=== PATIENT | female | born 1980 | race Caucasian/White ===

== ENCOUNTER 2022-10-18 12:24 | Outpatient (CLI) | payer MEDICAID, SELFPAY ==
[2022-10-18 13:46] LABS: Albumin* 4.5 g/dL (3.3-5.0); Chloride* 106 mmol/L (96-114)
[2022-10-18 13:47] LABS: Potassium* 4.2 mmol/L (3.6-5.1); Sodium* 139 mmol/L (135-149)
[2022-10-18 13:49] LABS: Aspartate Amino Transferase* 19 U/L (12-35); Bilirubin Total* 0.8 mg/dL (0.1-1.5); Carbon Dioxide* 27 mmol/L (20-32); Cholesterol* 147 mg/dL (90-199); Creatinine* 0.7 mg/dL (0.5-1.5); Estimated Glomerular Filt Rate 111 ml/min
[2022-10-18 13:50] LABS: Alanine Aminotransferase* 9 U/L (4-35); Alkaline Phosphatase* 52 U/L (40-150); Blood Urea Nitrogen* 8 mg/dL (5-24); Calcium* 9.1 mg/dL (8.4-10.6); Glucose* 84 mg/dL (60-115); HDL Cholesterol* 66 mg/dL (>=50); LDL Cholesterol Calculated 62 mg/dL (<100); Triglycerides* 95 mg/dL (40-149)
== END 2022-10-18 12:25 | disposition home or self-care (01) ==
PROVIDERS: PCP Family Medicine; Visit Provider Family Medicine
DX: Z13.6 Encounter for screening for cardiovascular disorders (principal); Z13.9 Encounter for screening, unspecified
CPT/HCPCS: 80053; 80061

== ENCOUNTER 2022-12-21 13:04 | Outpatient (REF) | payer MEDICAID, SELFPAY ==
[2022-12-21 13:33] LABS: Basophils Absolute Auto 0.01 K/uL (0.00-0.30); Basophils Percent Auto 0.2 % (0.0-3.0); Eosinophils Absolute Auto 0.01 K/uL (0.00-0.50); Eosinophils Percent Auto 0.2 % (0.0-7.0); Hemoglobin* 13.3 gm/dL (12.0-16.0); Immature Granulocytes Abs Auto 0.01 K/uL (0.00-0.30); Immature Granulocytes Pct Auto 0.2 %; Lymphocytes Absolute Auto 1.75 K/uL (0.90-2.90); Mean Corpuscular HGB Conc 33 gm/dL (32-36); Mean Corpuscular Hemoglobin 33 pg (26-34); Mean Corpuscular Volume 99 fL (80-100); Monocytes Percent Auto 5.5 % (0.0-11.0); Neutrophils Absolute Auto 3.92 K/uL (1.7-7.0); Neutrophils Percent Auto 64.9 % (42.0-72.0); Platelet Count* 261 K/uL (140-440); RDW Coefficient of Variation % 11.1 % (11.5-15.5); Red Blood Count 4.05 m/uL (4.00-5.20); White Blood Count* 6.03 K/uL (4.50-11.00)
[2022-12-21 16:23] LABS: Slide Review Reflex No
[2022-12-21 16:54] LABS: Albumin* 4.4 g/dL (3.3-5.0); Chloride* 110 mmol/L (96-114)
[2022-12-21 16:55] LABS: Potassium* 4.1 mmol/L (3.6-5.1); Sodium* 140 mmol/L (135-149)
[2022-12-21 16:57] LABS: Bilirubin Total* 0.7 mg/dL (0.1-1.5); Carbon Dioxide* 25 mmol/L (20-32); Cholesterol* 152 mg/dL (90-199); Creatinine* 0.7 mg/dL (0.5-1.5); Estimated Glomerular Filt Rate 111 ml/min
[2022-12-21 16:58] LABS: Alanine Aminotransferase* 10 U/L (4-35); Alkaline Phosphatase* 45 U/L (40-150); Aspartate Amino Transferase* 18 U/L (12-35); Blood Urea Nitrogen* 9 mg/dL (5-24); Calcium* 8.8 mg/dL (8.4-10.6); Glucose* 86 mg/dL (60-115); HDL Cholesterol* 62 mg/dL (>=50); LDL Cholesterol Calculated 70 mg/dL (<100); Triglycerides* 98 mg/dL (40-149)
[2022-12-22 21:11] LABS: Lithium, Serum or Plasma 0.4 mmol/L (0.5-1.2)
== END 2022-12-21 13:05 | disposition home or self-care (01) ==
LOC: NPINS 13:04
PROVIDERS: PCP Family Medicine
DX: R53.83 Other fatigue (principal)
CPT/HCPCS: 80053; 80061; 80178; 84443; 85025

== ENCOUNTER 2023-03-05 12:41 | Outpatient (CLI) | payer MEDICAID, SELFPAY ==
--- NOTE | 2023-03-05 13:20 | CRLHL7_ITS ---
For Patients: As a result of the Century Cures Act, medical imaging exams and procedure reports are released immediately into your electronic medical record. You may view this report before your referring provider. If you have questions, please contact your health care provider. BILATERAL SCREENING MAMMOGRAM WITH COMPUTER-AIDED DETECTION AND TOMOSYNTHESIS TECHNIQUE: CC and MLO views were obtained. These mammographic images have been obtained using full-field digital technique. These mammographic images were interpreted with the benefit of computer-aided detection. Breast Tomosynthesis was used in this interpretation. COMPARISON FILM: 10/21/21. FINDINGS: The breasts are heterogeneously dense, which may obscure small masses IMPRESSION: There is no radiographic evidence for malignancy. ASSESSMENT: BI-RADS Category 1: Negative RECOMMENDATION: Routine screening mammogram in 1 year. A lay language report of this examination will be provided to the patient. Oj Aguirre M.D. Diagnostic Radiologist [email or web address] Transcribed: 4:55 p.katina whiting/Dictated by: Oj Aguirre MD @ 03/06/2023 12:35:00 PM (Electronically Signed)
== END 2023-03-05 12:42 | disposition home or self-care (01) ==
LOC: MAMMO 12:42
PROVIDERS: PCP Family Medicine; Visit Provider Family Medicine
DX: Z12.31 Encounter for screening mammogram for malignant neoplasm of breast (principal); R92.2 Inconclusive mammogram
CPT/HCPCS: 77063; 77067

== ENCOUNTER 2023-06-21 16:22 | Outpatient (CLI) | payer MEDICAID, SELFPAY | END 2023-06-21 16:23 | disposition home or self-care (01) | PROVIDERS: PCP Family Medicine; Visit Provider Family Medicine | DX: R53.83 Other fatigue (principal); R41.3 Other amnesia; R06.02 Shortness of breath; E55.9 Vitamin D deficiency, unspecified | CPT/HCPCS: 80053; 82306; 82607; 82728; 84443 ==

== ENCOUNTER 2023-07-12 12:43 | Outpatient (CLI) | payer MEDICAID, SELFPAY ==
[2023-07-12 13:42] VITALS: BP 120/70; PULSE 86; RESP 16
--- NOTE | 2023-07-12 15:30 | W.PM.STED ---
Stress Test Note Date Date of test: 07/12/23 Providers Primary care provider: Nicci Alfred Stress test physician: Mario Alberto Willingham Stress Test Note Stress test ordered: Stress Echo Indication for test: Shortness of breath Stress test medicine: None Results discussion: Pleasant lady presents for the above test after discussion the risks benefits side effects she would like to proceed, cardiac stress test medical history form is reviewed. Pretest EKG shows normal sinus rhythm, there are no acute ST wave changes suggestive of ischemia, blood pressure 104 in 58 with a ventricular rate of 57. Standard Italo protocol is employed over a time course of 7 minutes 24 seconds she achieved a metabolic VIII 0.9 Mets, test is terminated because of shortness of breath and fatigue, she had a slightly sub maximal stress test at 96%. No significant ST wave changes suggestive ischemia occurred, there is no dysrhythmias, Impression: Negative electrographic portion of stress test, conditioning was felt to be moderate Follow up suggested: Await echo images clinical correlation with the needed, patient left this testing facility at baseline, there are no complications
== END 2023-07-12 13:49 | disposition home or self-care (01) ==
LOC: STRESS 12:44
PROVIDERS: PCP Family Medicine; Visit Provider Family Medicine
DX: R06.02 Shortness of breath (principal); I35.1 Nonrheumatic aortic (valve) insufficiency; I34.0 Nonrheumatic mitral (valve) insufficiency
CPT/HCPCS: 93016; 93325; 93351

== ENCOUNTER 2024-01-31 14:21 | Outpatient (REF) | payer MEDICAID, SELFPAY ==
[2024-01-31 15:20] LABS: Albumin* 4.4 g/dL (3.3-5.0); Chloride* 108 mmol/L (96-114)
[2024-01-31 15:21] LABS: Sodium* 142 mmol/L (135-149)
[2024-01-31 15:22] LABS: Potassium* 4.2 mmol/L (3.6-5.1)
[2024-01-31 15:23] LABS: Cholesterol* 152 mg/dL (90-199); Creatinine* 0.7 mg/dL (0.5-1.5); Estimated Glomerular Filt Rate 111 ml/min
[2024-01-31 15:24] LABS: Alanine Aminotransferase* 7 U/L (4-35); Alkaline Phosphatase* 57 U/L (40-150); Anion Gap 7 mEq/L (7-15); Aspartate Amino Transferase* 21 U/L (12-35); Bilirubin Total* 0.8 mg/dL (0.1-1.5); Blood Urea Nitrogen* 8 mg/dL (5-24); Carbon Dioxide* 27 mmol/L (20-32); Glucose* 87 mg/dL (60-115); Total Protein* 7.2 g/dL (6.0-8.3); Triglycerides* 95 mg/dL (40-149)
[2024-01-31 15:25] LABS: Calcium* 9.2 mg/dL (8.4-10.6); HDL Cholesterol* 68 mg/dL (>=50); LDL Cholesterol Calculated 65 mg/dL (<100)
[2024-01-31 15:30] LABS: Appearance Urine Clear (Clear); Bilirubin Urine Negative (Negative); Blood Urine Negative (Negative); Color Urine Yellow (Yellow); Glucose Urine Negative (Negative); Ketones Urine Negative (Negative); Leukocyte Esterase Urine Negative (Negative); Nitrite Urine Negative (Negative); Protein Urine Negative (Negative); Urobilinogen Urine 0.2 (0.2-1.0); pH Urine 7.5 (5.0-8.5)
[2024-01-31 15:32] LABS: Basophils Absolute Auto 0.01 K/uL (0.00-0.30); Basophils Percent Auto 0.2 % (0.0-3.0); Eosinophils Absolute Auto 0.08 K/uL (0.00-0.50); Eosinophils Percent Auto 1.3 % (0.0-7.0); Hematocrit 41.4 % (33.0-51.0); Hemoglobin* 13.7 gm/dL (12.0-16.0); Lymphocytes Absolute Auto 1.81 K/uL (0.90-2.90); Mean Corpuscular HGB Conc 33 gm/dL (32-36); Mean Corpuscular Hemoglobin 33 pg (26-34); Mean Corpuscular Volume 101 fL (80-100); Monocytes Percent Auto 5.3 % (0.0-11.0); Neutrophils Absolute Auto 3.81 K/uL (1.7-7.0); Neutrophils Percent Auto 63.2 % (42.0-72.0); Platelet Count* 273 K/uL (140-440); RDW Coefficient of Variation % 11.4 % (11.5-15.5); Red Blood Count 4.11 m/uL (4.00-5.20); White Blood Count* 6.03 K/uL (4.50-11.00)
[2024-01-31 15:40] LABS: Slide Review Reflex No
[2024-01-31 15:44] LABS: Hemoglobin A1C* 4.4 % (0-5.6)
[2024-01-31 15:47] LABS: Bacteria Urine Few; RBC Urine 0-2 (0-2); Squamous Epithelial Cell Urine Few (None-Few); WBC Urine 0-2 (0-5)
[2024-02-03 01:21] LABS: Lithium, Serum or Plasma 0.4 mmol/L (0.5-1.2)
== END 2024-01-31 14:22 | disposition home or self-care (01) ==
LOC: NPINS 14:21
PROVIDERS: PCP Family Medicine; Visit Provider Nurse Practitioner Psychiatric/Mental Health
DX: F31.9 Bipolar disorder, unspecified (principal)
CPT/HCPCS: 80053; 80061; 80178; 81001; 83036; 84443; 85025; 87086

== ENCOUNTER 2024-05-14 09:51 | Outpatient (CLI) | payer MEDICAID, SELFPAY ==
--- OUTSIDE RECORDS SUMMARY | 2024-05-14 09:53 | XMS_ITS | Clinical Summary ---
Author Organization [facility] Address [address] [place] [address] Care Team Providers Care Hide Handler Name Role Phone Braeden Shaffer MD Primary Care Provider [phone] Source Comments You are receiving this document as you are listed as the primary care provider,follow-up provider, or the patient has been referred to you for consultation.This is in compliance with the Medicare and[facility]centive [facility],which states Providers who transition their patient to another setting of careor provider of care or refers their patient to another provider of care shouldprovide summary care record for each transition of care or referral. [facility] [employer] Allergies Active Allergy Reactions Criticality Noted Date Comments Clomipramine Other, see comments 09/16/2021 Irregular hearbeat Medications Medication Sig Dispensed Refills Start Date End Date Status Multiple Vitamins-Minerals (MULTIVITAMIN OR) Take 1 tablet by mouth daily (every 24 hours). 100 13 11/03/2004 Active ARIPiprazole (ABILIFY) 10 MG tablet Daily Active lithium carbonate ER (LITHOBID) 450 MG extended release tablet Bedtime Active LORazepam (ATIVAN) 0.5 MG tablet Bedtime as needed Acti ve lithium carbonate 300 MG tablet Take 300 mg by mouth three times a day. Active ketoconazole (NIZORAL) 2 % cream Apply topically daily. Active thiamine (THIAMINE) 100 MG tablet Take 100 mg by mouth daily. Active vitamin B-12 (AKA: CYANOCOBALAMIN) 1000 MCG tablet Take 1,000 mcg by mouth daily. Active gabapentin (NEURONTIN) 300 MG capsule Take by mouth. 12/25/2021 Active lithium carbonate 300 MG capsule Every Morning Active QUEtiapine (SEROQUEL) 25 MG tablet Take 12.5 mg by mouth daily as needed. 12/13/2021 Active thiamine (VITAMIN B-1) 100 MG tablet Daily 08/26/2021 Active sertraline (ZOLOFT) 25 MG tablet Take 25 mg by mouth daily. 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 Overview: LW Modifier: non-verbal ; Learning Disorder NOS Mitral valve disorder 11/06/2004 Overview: LW Modifier: valve thickening-needs ab'tic prophylaxi ; Mitral Valve Disorder Acquired NOS Eating disorder 10/26/2004 Overview: Eating Disorder NOS 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 Overview: Osteopenia Dysthymic disorder 04/05/2004 Overview: Dysthymia Obsessive-compulsive disorder 04/05/2004 Overview: Obsessive Compulsive Disorder Immunizations Name Administration Dates Next Due Influenza IIV4 (Quadrivalent) 0.5mL (42662) 11/26 MMR 09/17/1995,09/17/1995 PCV13 (Prevnar) 08/10/2015 PPSV23 (Pneumovax) 01/29/2006 Pfizer Monovalent 12+ Purple Top 05/03/2021,03/26 Tdap 08/03/2011 Zoster (Zostavax) 05/26/2008 Social History Tobacco Use Types Packs/Day Years Used Date Smoking Tobacco: Never Smokeless Tobacco: Never Sex and Gender Information Value Date Recorded Sex Assigned at Not on file Gender Identity Not on file Sexual Orientation Not on file Last Filed Vital Signs Vital Sign Reading Time Taken Comments Blood Pressure 124/78 07/28/2009 3:00 PM CDT Pulse 72 07/28/2009 3:00 PM CDT Temperature 35.9 ??C (96.6 ??F) 07/02/2009 4 :56 PM CDT ORAL C: 35.9 C Respiratory Rate 14 07/02/2009 4:56 PM CDT Oxygen Saturation - - Inhaled Oxygen Concentration - - Weight 54.5 kg (120 lb 3.1 oz) 07/28/2009 3:00 PM CDT C: 54.5kg Height 168.3 cm (5' 6.25) 07/28/2009 3 :00 PM CDT C: 168.3cm Body Mass Index 19.26 07/28/2009 3:00 PM CDT Plan of Treatment Health Maintenance Due Date Last Done Comments Hep C Screening (Preventive Services) 1981 HIV Screening (Preventive Services) 1997 Adult Preventive Visit 1999 HepB (1) 02/25/2000 Cervical Cancer Screening Due 06/28/2007, 11/03/2004, 10/10/2001 DTaP/Tdap/Td (3 - Tdap) 08/03/2021 08/03/20, 01/25/1998 COVID-19 Vaccine (3 - 2022-2 4 season) 2023 05/03/2021, 04/12/2021 Influenza (Season Ended) 2024 12/08/2020 Zoster/Shingles (1 of 2) 2031 05/26/2008 Pneumococcal Aged Out 08/10/2015, 01/29/2006 No longer eligible based on patient's age to complete this topic HPV Vaccine Aged Out No longer eligi ble based on patient's age to complete this topic HepA Aged Out No longer eligi ble based on patient's age to complete this topic Hib Aged Out No longer eligi ble based on patient's age to complete this topic IPV (Polio) Aged Out No longer eligi ble based on patient's age to complete this topic MCV4 Aged Out No longer eligi ble based on patient's age to complete this topic Procedures Procedure Name Priority Date/Time Associated Diagnosis Comments ANATOMICAL PATH LIQUID BASED Routine 06/27/2007 9:53 AM CDT from Last 3 Months or Most Recently Relevant to Health Maintenance Results * Pap Smear (06/27/2007 9:53 AM CDT) PAP Smear Liquid Based SEE TEXT No normal range HP CONVERSION Comment: Patient: TORY GANNON ? CERVICAL CYTOLOGY REPORT Pathology # ??[id number] ?Date Obtained: ? Date Received: CYTOLOGIC IMPRESSION: Negative for intraepithelial lesion or malignancy. Verified 07/02/07 by: ??KGM ?(electronic signature) ? ADDITIONAL DATA LMP: CLINICAL HIST LIQUID BASED PAP CERVICAL SPECIMEN ADEQUACY: ?? Satisfactory. ENDOCERVICAL CELLS: ??Present. 06/27/2007 9:53 AM CDT Braeden Shaffer MD LAB_1 HP CONVERSION from Last 3 Months or Most Recently Relevant to Health Maintenance Care Teams Hide Handler Relationship Specialty Start [place] [address] [place] [address] PCP - General 02/26/11
--- OUTSIDE RECORDS SUMMARY | 2024-05-14 09:53 | XMS_ITS | Clinical Summary ---
Author Organization [facility] Address [place], [place] [address] Care Team Providers Care Roads And Parking Lots Sweeper Operator Name Role Phone Nicci Alfred MD Primary Care Provider + Allergies No known active allergies Medications Medication Sig Dispensed Refills Start Date End Date Status LORazepam (ATIVAN) 0.5 mg tabIndications:Panic attacks Take 1 tab by mouth daily for acute anxiety/panic 10 tablet 0 05/05/2016 Active doxylamine (UNISOM, DOXYLAMINE,) 25 mg tablet Take 1 tablet by mouth at bedtime if needed for Sleep. 0 06/27/2016 Active sertraline (ZOLOFT) 100 mg tabletIndications:MDD (major depressive disorder), recurrent episode, moderate (HC) Take 1 and 1/2 tabs by mouth daily. 45 tablet 1 06/27/2016 Active QUEtiapine (SEROQUEL) 50 mg tabletIndications:Dep ression, major, recurrent, moderate (HC),OCD (obsessive compulsive disorder) Take 1 tablet by mouth at bedtime. 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 02/28/2010 Eating disorder, unspecified 08/04/2009 Resolved Problems Problem Noted Date Diagnosed Date Resolved Date Depression, major, recurrent , moderate to severe 03/16/2015 06/27/2016 Major depression, recurrent 08/01/2010 03/16/2015 Depressive disorder, not elsewhere classified 07/08/2008/01/2010 Overview: Rule out Major Depression, Recurrent Anxiety state, unspecified 07/08/2009 0 05/09/2010 Overview: Rule out Generalized Anxiety Disorder and Panic Disorder Immunizations Name Administration Dates Next Due MMR 09/17/1995 Tdap 08/03/2011 Family History Medical History Relation Name Comments Diabetes Father Hyperlipidemia Father Hypertension Father Hyperlipidemia Mother Hypertension Mother Other Mother menier's Cancer Sister melanoma Relation Name Status Comments Father Mother Sister Social History Tobacco Use Types Packs/Day Years Used Date Smoking Tobacco: Never Smokeless Tobacco: Never Tobacco Cessation:Counseling Given: Yes Alcohol Use Standard Drinks/Week Comments No 0 (1 standard drink = 0.6 oz pur e alcohol) Sex and Gender Information Value Date Recorded Sex Assigned at Not on file Gender Identity Not on file Sexual Orientation Not on file Obstetrics History Last Filed Vital Signs Vital Sign Reading Time Taken Comments Blood Pressure 106/71 06/27/2016 3:20 PM CDT Pulse 85 06/27/2016 3:20 PM CDT Temperature 36.8 ??C (98.2 ??F) 06/12/2016 2:21 PM CD T Respiratory Rate 12 09/06/2012 6:46 PM CDT Oxygen Saturation 94% 06/12/2016 2:21 PM CDT Inhaled Oxygen Concentration - - Weight 49.6 kg (109 lb 6.4 oz) 06/27/2016 3:20 P M CDT Height 166 cm (5' 5.35) 06/12/2016 2:21 PM CDT Body Mass Index 18.01 06/12/2016 2:21 PM CDT Plan of Treatment Health Maintenance Due Date Last Done Comments HIV for age 15-65 02/25/1996 Hepatitis C screening for age 18-79 1999 Pap test for age 21-65 06/04/2017 4, 06/04/2014, 11/11/2009 BMI (ht and wt on same day) for age 18+ 06/12/2017 06/12/2016, 05/01/2016, 03/24/2016, Additional history exists Depression screening for age 12+ 06/27/2017 06/27/2016, 06/27/2016, 06/13/2016, Additional history exists Tetanus booster 08/03/2021 08/03/2011, 08/03/2011 COVID-19 vaccine series ( season) 2023 09/19/2022, 01/13/2022, 05/03/2021, Additional history exists Influenza for age 9-49 07/27/2024 Tdap Completed 08/03/2011 Pneumococcal series for age 6-64 Aged Out No longer eligible based on patient's age to complete this topic Procedures Procedure Name Priority Date/Time Associated Diagnosis Comments HPV THIN PREP Timed 06/04/2014 8:35 PM CDT from Last 3 Months or Most Recently Relevant to Health Maintenance Results * HPV THIN PREP (06/04/2014 8:35 PM CDT) SPECIMEN/SOURC E Thin prep [facility] HPV RESULTS High Risk HPV Negative. HPV types 16,18,31, 33,35,39, 45,51,52, 56,58,59, 66 and 68 DNA were undetecta ble or below the pre-set threshold . Methodolo gy: Gume Daphnie [address] [facility] 06/04/2014 8:35 PM CDT 06/04/2014 8:35 PM CDT Janet Mitchell MICROBIOLOGY [facility] [place]NAL ZIP [address] [place] [address] from Last 3 Months or Most Recently Relevant to Health Maintenance Care Teams Roads And Parking Lots Sweeper Operator Relationship Specialty Start Date End Date Nicci Alfred MD [address] [place] [address] PCP - General Family Practice 10/23/23
--- OUTSIDE RECORDS SUMMARY | 2024-05-14 09:53 | XMS_ITS | Clinical Summary ---
Author Organization [facility] Address [address] [place] [address] Care Team Providers Care Nuclear Officer Name Role Phone Carmen Ortiz MD Primary Care Provider [phone] Allergies No known active allergies Medications Medication Sig Dispensed Refills Start Date End Date Status lithium 150 MG capsule Take 1 capsule (150 mg) by mouth 3 times daily (with meals) 12/27/2016 Active OLANZapine (ZYPREXA) 10 MG tablet Take 1 tablet (10 mg) by mouth At Bedtime 30 tablet 1 12/27/2016 Active Active Problems Problem Noted Date Diagnosed Date Low vitamin B12 level 12/27/2016 Hirsutism 12/27/2016 Social History Tobacco Use Types Packs/Day Years Used Date Smoking Tobacco: Never Smokeless Tobacco: Never Alcohol Use Standard Drinks/Week Comments Not Asked 0 (1 standard drink = 0.6 oz pur e alcohol) Sex and Gender Information Value Date Recorded Sex Assigned at Not on file Gender Identity Not on file Sexual Orientation Not on file Last Filed Vital Signs Vital Sign Reading Time Taken Comments Blood Pressure 99/66 06/13/2019 2:08 PM CDT Pulse 106 06/13/2019 2:08 PM CDT Temperature 36.6 ??C (97.8 ??F) 06/13/2019 2:08 PM CD T Respiratory Rate 12 06/13/2019 2:08 PM CDT Oxygen Saturation 95% 10/08/2015 10:01 PM CONDITIONING MACHINE OPERATOR Inhaled Oxygen Concentration - - Weight 53.8 kg (118 lb 9.6 oz) 06/13/2019 2:08 P M CDT Height 166.4 cm (5' 5.5) 12/27/2016 3:06 PM CONDITIONING MACHINE OPERATOR Body Mass Index 19.44 12/27/2016 3:06 PM CONDITIONING MACHINE OPERATOR Plan of Treatment Not on file Care Teams Nuclear Officer Relationship Specialty Start Date End Date Carmen Ortiz MD PCP - General Family Practice 10/08/15
--- OUTSIDE RECORDS SUMMARY | 2024-05-14 09:53 | XMS_ITS | Referral Summary ---
Author Organization [facility] Address [address] [place] [address] Care Team Providers Care Stretch Press Operator Name Role Phone Carmen Ortiz MD Primary Care Provider [phone] Allergies No known active allergies Medications Medication [...] CDT Oxygen Saturation 95% 10/08/2015 10:01 PM ACADEMIC SERVICES COORDINATOR Inhaled Oxygen Concentration - - Weight 53.8 kg (118 lb 9.6 oz) 06/13/2019 2:08 P M CDT Height 166.4 cm (5' 5.5) 12/27/2016 3:06 PM ACADEMIC SERVICES COORDINATOR Body Mass Index 19.44 12/27/2016 3:06 PM ACADEMIC SERVICES COORDINATOR Plan of Treatment Not on file Care Teams Stretch Press Operator Relationship Specialty Start Date End Date Carmen Ortiz MD PCP - General Family Practice 10/08/15
--- NOTE | 2024-05-14 10:15 | CRLHL7_ITS ---
For Patients: As a result of the Century Cures Act, medical imaging exams and procedure reports are released immediately into your electronic medical record. You may view this report before your referring provider. If you have questions, please contact your health care provider. BILATERAL SCREENING MAMMOGRAM WITH COMPUTER-AIDED DETECTION AND TOMOSYNTHESIS TECHNIQUE: CC and MLO views were obtained. These mammographic images have been obtained using full-field digital technique. These mammographic images were interpreted with the benefit of computer-aided detection. Breast tomosynthesis was used in this interpretation. COMPARISON FILM: 03/05/23, 10/21/21. FINDINGS: The breasts are extremely dense, which lowers the sensitivity of mammography. IMPRESSION: There is no radiographic evidence for malignancy. ASSESSMENT: BI-RADS Category 1: Negative RECOMMENDATION: Routine screening mammogram in 1 year. A lay language report of this examination will be provided to the patient. OJ CARRERO M.D. Diagnostic Radiologist [email or web address] Transcribed: 2:[address]/Dictated by: Oj Carrero MD @ 05/14/2024 12:14:00 PM (Electronically Signed)
== END 2024-05-14 09:52 | disposition home or self-care (01) ==
LOC: MAMMO 09:52
PROVIDERS: PCP Family Medicine; Visit Provider Family Medicine
DX: Z12.31 Encounter for screening mammogram for malignant neoplasm of breast (principal); R92.2 Inconclusive mammogram
CPT/HCPCS: 77063; 77067

== ENCOUNTER 2024-10-02 10:15 | Outpatient (CLI) | payer MEDICAID, SELFPAY ==
--- OUTSIDE RECORDS SUMMARY | 2024-10-02 14:49 | XMS_ITS | Clinical Summary ---
Author Organization [facility] Address [address] [place] [address] Care Team Providers Care Advertising Intern Name Role Phone Carmen Ortiz MD Primary Care Provider [phone] Allergies No known active allergies Medications lithium 150 MG capsule Take 1 capsule [...] drink = 0.6 oz pur e alcohol) Comments No Sex and Gender Information Value Date Recorded Sex Assigned at Not on file Legal Sex Female 3:25 AM DIE REPAIRER FORGING Gender Identity Not on file Sexual Orientation Not on file Last Filed Vital Signs Vital Sign Reading Time Taken Comments Blood Pressure 99/66 06/13/2019 2:08 PM CDT Pulse 106 06/13/2019 2:08 PM CDT Temperature 36.6 ??C (97.8 ??F) 06/13/2019 2:08 PM CD T Respiratory Rate 12 06/13/2019 2:08 PM CDT Oxygen Saturation 95% 10/08/2015 10:01 PM DIE REPAIRER FORGING Inhaled Oxygen Concentration - - Weight 53.8 kg (118 lb 9.6 oz) 06/13/2019 2:08 P M CDT Height 166.4 cm (5' 5.5) 12/27/2016 3:06 PM DIE REPAIRER FORGING Body Mass Index 19.44 12/27/2016 3:06 PM DIE REPAIRER FORGING Plan of Treatment Not on file Insurance MEDICAID [place] Care Teams Advertising Intern Relationship Specialty Start Date End Date Carmen Ortiz MD PCP - General Family Practice 10/08/15
--- OUTSIDE RECORDS SUMMARY | 2024-10-02 14:49 | XMS_ITS | Clinical Summary ---
Author Organization [facility] Address [place], [place] [address] Care Team Providers Care Operations Tech Name Role Phone Nicci Alfred MD Primary [...] 03/16/2015 Depressive disorder, not elsewhere classified 07/08/2008/01/2010 Overview (07/08/2009): Rule out Major Depression, Recurrent Anxiety state, unspecified 07/08/2009 0 05/09/2010 Overview (07/08/2009): Rule out Generalized Anxiety Disorder and Panic [...] 08/03/2011, 08/03/2011 COVID-19 vaccine series ( season) 2024 09/19/2022, 01/13/2022, 05/03/2021, Additional history exists Influenza for age 9-49 07/27/2024 Tdap Completed 08/03/2011 Pneumococcal series for age 6-64 Aged Out No longer eligible based on patient's age to complete this topic Procedures Procedure Name Priority Date/Time Associated Diagnosis Comments HPV HIGH RISK Timed 06/04/2014 8:35 PM CDT from Last 3 Months or Most Recently Relevant to Health Maintenance Results * HPV THIN PREP (06/04/2014 8:35 PM CDT) SPECIMEN/SOURC E Thin prep [facility] HPV RESULTS High Risk HPV Negative. HPV types 16,18,31, 33,35,39, 45,51,52, 56,58,59, 66 and 68 DNA were undetecta ble or below the pre-set threshold . Methodolo gy: Gume Daphnie 4800 HPV Test [facility] 06/04/2014 8:35 PM CDT 06/04/2014 8:35 PM CDT Janet Mitchell MICROBIOLOGY [facility] INTERNAL ZIP [address] [address] [place] [address] from Last 3 Months or Most Recently Relevant to Health Maintenance Care Teams Operations Tech Relationship Specialty Start Date End Date Nicci Alfred MD [address] [place] [address] PCP - General Family Practice 10/23/23
--- OUTSIDE RECORDS SUMMARY | 2024-10-02 14:49 | XMS_ITS | Clinical Summary ---
Author Organization [facility] Address [address] [address] Care Team Providers Care Artificial Flowers Supervisor Name Role Phone Braeden Shaffer MD Primary Care Provider [phone] Source Comments You are receiving this document as you are listed as the primary care provider,follow-up provider, or the patient has been referred to you for consultation.This is in compliance with the Medicare and[facility] Incentive [facility],which states Providers who transition their patient to another setting of careor provider of care or refers their patient to another provider of care shouldprovide summary care record for each transition of care or referral. [facility] Allerg[facility] Active Allergy Reactions Criticality Noted Date [...] 12/26/2021 Bipolar 1 disorder with moderate faye Insomnia 12/26/2021 Kyphoscoliosis 12/26/2021 Femoroacetabular impingement of both hips 2021 Autism spectrum disorder 09/28/2021 Bilateral hip pain 09/28/2021 Bipolar 1 disorder 09/28/2021 Chronic diarrhea of unknown origin 09/28/2021 Excessive daytime sleepiness 09/28/2021 Fatigue 09/28/2021 Hx of anorexia nervosa 09/28/2021 Memory difficulties 09/28/2021 Neutropenia 09/28/2021 Pelvic floor dysfunction 09/28/2021 Schizophrenia 09/28/2021 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 Overview (07/18/2017): LW Modifier: non-verbal ; Learning Disorder NOS Mitral valve disorder 11/06/2004 Overview (07/18/2017): LW Modifier: valve thickening-needs ab'tic prophylaxi ; Mitral Valve Disorder Acquired NOS Eating disorder 10/26/2004 Overview (07/18/2017): Eating Disorder NOS 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 Overview (07/18/2017): Osteopenia Dysthymic disorder 04/05/2004 Overview (07/18/2017): Dysthymia Obsessive-compulsive disorder 04/05/2004 Overview (07/18/2017): Obsessive Compulsive Disorder Immunizations Name Administration Dates Next Due Influenza IIV4 (Quadrivalent) 0.5mL (42624) 11/26 MMR 09/17/1995,09/17/1995 PCV13 (Prevnar) 08/10/2015 PPSV23 [...] Comments Hep C Screening (Preventive Services) 1981 Mammogram 1981 HIV Screening (Preventive Services) 1997 Adult Preventive Visit 1999 HepB (1) 02/25/2000 Cervical Cancer Screening Due 06/28/2007, 11/03/2004, 10/10/2001 DTaP/Tdap/Td (3 - Tdap) 08/03/2021 08/03/20 11, 01/25/1998 COVID-19 Vaccine (3 - 2023-2 5 season) 2024 05/03/2021, 04/12/2021 Influenza (#1) 2024 12/08/2020 Zoster/Shingles (1 of 2) 2031 [...] on patient's age to complete this topic RSV Aged Out No longer eligi ble based [...] [facility] ? CERVICAL CYTOLOGY REPORT Pathology # ??[id number] ?Date Obtained: ? Date Received: CYTOLOGIC IMPRESSION: Negative for intraepithelial lesion or malignancy. Verified 07/02/07 by: ??KGM ?(electronic signature) ? ADDITIONAL DATA LMP: CLINICAL HIST LIQUID BASED PAP CERVICAL SPECIMEN ADEQUACY: ?? Satisfactory. ENDOCERVICAL CELLS: ??Present. 06/27/2007 9:53 AM CDT Braeden Shaffer MD LAB_1 HP CONVERSION from Last 3 Months or Most Recently Relevant to Health Maintenance Care Teams Artificial Flowers Supervisor Relationship Specialty Start [place] [address] [place] [address] PCP - General 02/26/11
--- OUTSIDE RECORDS SUMMARY | 2024-10-02 14:49 | XMS_ITS | Referral Summary ---
Author Organization [facility] Address [address] [place] [id number] Care Team Providers Care Insole Tack Puller Hand Name Role Phone Carmen Ortiz MD Primary Care Provider + [phone] Allergies No known active allergies Medications lithium [...] on file Legal Sex Female 3:25 AM CHARM FILTER OPERATOR HELPER Gender Identity Not on file Sexual Orientation Not on file Last Filed Vital Signs Vital Sign Reading Time Taken Comments Blood Pressure 99/66 06/13/2019 2:08 PM CDT Pulse 106 06/13/2019 2:08 PM CDT Temperature 36.6 ??C (97.8 ??F) 06/13/2019 2:08 PM CD T Respiratory Rate 12 06/13/2019 2:08 PM CDT Oxygen Saturation 95% 10/08/2015 10:01 PM CHARM [employer]TER OPERATOR HELPER Inhaled Oxygen Concentration - - Weight 53.8 kg (118 lb 9.6 oz) 06/13/2019 2:08 P M CDT Height 166.4 cm (5' 5.5) 12/27/2016 3:06 PM CHARM [employer]TER OPERATOR HELPER Body Mass Index 19.44 12/27/2016 3:06 PM CHARM FILTER OPERATOR HELPER Plan of Treatment Not on file Insurance MEDICAID [place] Care Teams Insole Tack Puller Hand Relationship Specialty Start Date End Date Carmen Ortiz MD PCP - General Family Practice 10/08/15
== END 2024-10-02 10:16 | disposition home or self-care (01) ==
LOC: NFLDREF 14:42
PROVIDERS: PCP Family Medicine; Referring Provider Family Medicine; Visit Provider Family Medicine
DX: E78.5 Hyperlipidemia, unspecified (principal); Z13.228 Encounter for screening for other metabolic disorders
CPT/HCPCS: 80053; 80061

== ENCOUNTER 2024-11-14 14:22 | Outpatient (CLI) | payer MEDICAID, SELFPAY ==
[2024-11-18 18:25] LABS: HPV Source Cervical; HPV, High Risk by TMA Not Detected
== END 2024-11-14 14:23 | disposition home or self-care (01) ==
PROVIDERS: PCP Family Medicine; Visit Provider Obstetrics & Gynecology
DX: Z12.4 Encounter for screening for malignant neoplasm of cervix (principal); Z11.3 Encounter for screening for infections with a predominantly sexual mode of transmission; Z11.59 Encounter for screening for other viral diseases
CPT/HCPCS: 83520; 87624; 87625; 88141; 88142